=== PATIENT | female | born 1970 | race Caucasian/White ===

== ENCOUNTER 2018-02-12 15:09 | Emergency (ER) | payer BC ==
[2018-02-12] MEDS ORDERED: Morphine 2 MG/ML Syringe IVPUSH ONE ×2 (15:35→17:08)
[2018-02-12] MEDS ORDERED: Sodium Chloride 0.9% 10 ML Syringe FLUSH PRN ×2 (15:35→16:23)
[2018-02-12] MEDS ORDERED: Sodium Chloride 0.9% 1,000 ML IV ONE (15:35)
[2018-02-12] MEDS ORDERED: Ondansetron 4 MG/2 ML SDV IVPUSH ONE (15:35)
--- NOTE | 2018-02-12 15:45 | EDM.PDOC ---
ED HPI GENERAL MEDICAL PROBLEM - General Chief Complaint: Cardiovascular Problem Stated Complaint: RACING HEART BEAT Time Seen by Provider: 02/12/18 15:28 Source of Information: Reports: Patient History Limitations: Reports: No Limitations - History of Present Illness INITIAL COMMENTS - FREE TEXT/NARRATIVE: 47-year-old female presents for evaluation and treatment of a rapid heartbeat. Patient reports this started around midnight last night. She states that she was at work at the time. She was standing and walking, not overly exerting herself. She states that she suddenly felt her heart pounding and felt some discomfort in her chest associated with this. She reports associated symptoms of nausea and lightheadedness. She did vomit twice prior to coming to the ER. She reports she did feel some shortness of breath earlier but this is no improved. Patient also reports associated symptoms of bilateral flank pain which started at the time of the chest palpitations. Reports the flank pain is currently a 5 out of 10 but states that its worse it was an 8 or 9 out of 10. She denies any syncope. Denies any pain or swelling in her legs. Patient reports this did occur on one other occasion several months ago. She did not seek help right away. She was seen by her primary care provider 5 days later and was told she possibly had paroxysmal SVT. She did try vagal maneuvers including bearing-down prior to arrival in the ER but this did not relieve the palpitations. Patient is also complaining of a headache. She has a history of headaches and states this feels similar to her previous headaches. Reports some blurriness in her vision earlier but this is now resolved. Reports the headache started on . She is on Imitrex for migraines. She states that she took 2 on , one last night Wednesday without any relief. No recent travel. 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 Headache Pain Score (Numeric/FACES): 9 - Related Data Allergies Allergy/AdvReac Type Severity Reaction Status Date / Time No Known Allergies Allergy Verified 10/08/15 15:03 Home Meds: Home Meds Aspirin [Halfprin] 81 mg PO DAILY #30 tab.ec 09/28/14 [Rx] SUMAtriptan Succinate [Imitrex] 100 mg PO ASDIRECTED 10/08/15 [History] Topiramate [Topamax] 100 mg PO BEDTIME 10/08/15 [History] Venlafaxine [Effexor XR] 150 mg PO DAILY 10/08/15 [History] Losartan Potassium 25 mg PO DAILY 02/12/18 [History] Metoprolol Succinate 50 mg PO DAILY #20 tab.er.24h 02/12/18 [Rx] Past Medical History HEENT History: Reports: Allergic Rhinitis, Impaired Vision, Other (See Below) Other HEENT History: sinus infection, rhinosinusitis, wears glasses Cardiovascular History: Reports: Hypertension, Other (See Below) Other Cardiovascular History: chest pain, creschendo angina, hypertensive crisis without CHF Gastrointestinal History: Reports: Hemorrhoids Other Gastrointestinal History: nausea, rectal bleeding Genitourinary History: Other OB/BYN History: irregular menses Musculoskeletal History: Reports: Fibromyalgia, Neck Pain, Chronic Other Musculoskeletal History: L Leg broken many years ago Neurological History: Reports: Headaches, Chronic, Migraines Psychiatric History: Reports: Anxiety, Panic Attack - Past Surgical History Musculoskeletal Surgical History: Reports: Shoulder Surgery Social & Family History - Tobacco Use Smoking Status *Q: Never Smoker - Caffeine Use Caffeine Use: Reports: Coffee, Tea - Recreational Drug Use Recreational Drug Use: No ED ROS GENERAL - Review of Systems Review Of Systems: See Below Respiratory: Reports: Shortness of Breath. Denies: Cough Cardiovascular: Reports: Chest Pain, Lightheadedness, Palpitations. Denies: Edema, Syncope GI/Abdominal: Reports: Nausea, Vomiting. Denies: Abdominal Pain : Reports: Flank Pain (bilateral) Musculoskeletal: Denies: Leg Pain Neurological: Reports: Headache. Denies: Syncope ED EXAM, GENERAL - Physical Exam Exam: See Below Exam Limited By: No Limitations General Appearance: Alert, WD/WN, No Apparent Distress, Obese Eye Exam: Bilateral Eye: Normal Inspection Ears: Normal External Exam Nose: Normal Inspection Throat/Mouth: Normal Inspection, Normal Voice, No Airway Compromise Respiratory/Chest: No Respiratory Distress, Lungs Clear, Normal Breath Sounds Cardiovascular: No Murmur, Tachycardia Peripheral Pulses: 2+: Radial (L), Radial (R), Dorsalis Pedis (L), Dorsalis Pedis (R) GI/Abdominal: Normal Bowel Sounds, Soft, Splenomegaly Neurological: Alert, Oriented, Normal Cognition Psychiatric: Normal Affect, Normal Mood Skin Exam: Warm, Dry, Normal Color EKG INTERPRETATION EKG Date: 02/12/18 Time: 15:20 Rhythm: Other (sinus tachycardia) Rate (Beats/Min): 116 [place]: Normal P-Wave: Present QRS: Normal ST-T: Normal QT: Normal EKG Interpretation Comments: Sinus tachycardia at 116 bpm. Abnormal Q waves in II, III and AVF. Reviewed by myself and Dr Mason. Course - Vital Signs Last Recorded V/S: Last Vital Signs Temp 36.3 C 02/12/18 15:14 Pulse 118 H 02/12/18 18:16 Resp 28 H 02/12/18 15:14 BP 134/82 02/12/18 18:16 Pulse Ox 96 02/12/18 15:14 - Orders/Labs/Meds Orders: Active Orders 24 hr Category Date Time Status Cardiac Monitoring [RC] . DIRECTED Care 02/12/18 15:35 Active EKG Documentation Completion [RC] ASDIRECTED Care 02/12/18 15:16 Active Peripheral IV Care [RC] . DIRECTED Care 02/12/18 15:36 Active Abdomen Pelvis w Cont [CT] Stat Exams 02/12/18 16:02 Taken Ang Chest [CT] Stat Exams 02/12/18 16:02 Taken Chest 1V Frontal [CR] Stat Exams 02/12/18 15:35 Taken CULTURE BLOOD [BC] Stat Lab 02/12/18 17:30 Received CULTURE BLOOD [BC] Stat Lab 02/12/18 17:40 Received DRUG SCREEN, URINE [URCHEM] Stat Lab 02/12/18 17:15 Ordered UA W/MICROSCOPIC [URIN] Stat Lab 02/12/18 17:17 Ordered Blood Culture x2 Reflex Set [OM.PC] Stat Oth 02/12/18 17:16 Ordered Peripheral IV Insertion Adult [OM.PC] Routine Oth 02/12/18 15:35 Ordered EKG 12 Lead [EK] Stat Ther 02/12/18 15:16 Ordered Labs: Laboratory Tests 02/12/18 02/12/18 02/12/18 Range/Units 15:20 15:20 15:20 WBC 2.62 L (3.98-10.04) K/mm3 RBC 4.90 (3.98-5.22) M/mm3 Hgb 14.2 (11.2-15.7) gm/L Hct 43.0 (34.1-44.9) % MCV 87.8 (79.4-94.8) fl MCH 29.0 (25.6-32.2) pg MCHC 33.0 (32.2-35.5) g/dl RDW Std Deviation 43.6 (36.4-46.3) fL Plt Count 180 L (182-369) K/mm3 MPV 9.7 (9.4-12.3) fl Neutrophils % (Manual) 75 H (40-60) % Band Neutrophils % 1 (0-10) % Lymphocytes % (Manual) 17 L (20-40) % Atypical Lymphs % 0 % Monocytes % (Manual) 6 (2-10) % Eosinophils % (Manual) 0 L (0.7-5.8) % Basophils % (Manual) 1 (0.1-1.2) Platelet Estimate Adequate Plt Morphology Comment Normal RBC Morph Comment Normal PT (9.5-12.1) SECONDS INR APTT (24-31) SECONDS D-Dimer, Quantitative 2.05 H (0.19-0.50) mg/L Sodium 136 (136-145) mEq/L Potassium 3.8 (3.5-5.1) mEq/L Chloride 99 (98-107) mEq/L Carbon Dioxide 27 (21-32) mEq/L Anion Gap 13.8 (5-15) BUN 10 (7-18) mg/dL Creatinine 0.9 (0.55-1.02) mg/dL Est Cr Clr Drug Dosing 79.89 mL/min Estimated GFR (MDRD) > 60 (>60) mL/min BUN/Creatinine Ratio 11.1 L (14-18) Glucose 133 H (74-106) mg/dL Lactic Acid (0.4-2.0) mmol/L Calcium 9.7 (8.5-10.1) mg/dL Magnesium 1.9 (1.8-2.4) mg/dl Total Bilirubin 0.6 (0.2-1.0) mg/dL AST 30 (15-37) U/L ALT 38 (14-59) U/L Alkaline Phosphatase 62 (46-116) U/L Troponin I < 0.017 (0.00-0.056) ng/mL C-Reactive Protein (<1.0) mg/dL Total Protein 8.6 H (6.4-8.2) g/dl Albumin 4.3 (3.4-5.0) g/dl Globulin 4.3 gm/dL Albumin/Globulin Ratio 1.0 (1-2) TSH 3rd Generation 0.515 (0.358-3.74) uIU/mL Urine Color (Yellow) Urine Appearance (Clear) Urine pH (5.0-8.0) Ur Specific [place] (1.005-1.030) Urine Protein (Negative) Urine Glucose (UA) (Negative) Urine Ketones (Negative) Urine Occult Blood (Negative) Urine Nitrite (Negative) Urine Bilirubin (Negative) Urine Urobilinogen (0.2-1.0) Ur Leukocyte Esterase (Negative) Urine RBC (0-5) /hpf Urine WBC (0-5) /hpf Ur Epithelial Cells (0-5) /hpf Urine Bacteria (FEW) /hpf Urine Mucus (FEW) /hpf Urine Opiates Screen (NEGATIVE) Ur Buprenorphine Scrn (NEGATIVE) Ur Oxycodone Screen (NEGATIVE) Urine Methadone Screen (NEGATIVE) Ur Propoxyphene Screen (NEGATIVE) Ur Barbiturates Screen (NEGATIVE) Ur Tricyclics Screen (NEGATIVE) Ur Phencyclidine Scrn (NEGATIVE) Ur Amphetamine Screen (NEGATIVE) U Methamphetamines Scrn (NEGATIVE) U Benzodiazepines Scrn (NEGATIVE) U Cocaine Metab Screen (NEGATIVE) U Marijuana (THC) Screen (NEGATIVE) Ethyl Alcohol (0.00) gm% Monoscreen (NEGATIVE) 02/12/18 02/12/18 02/12/18 Range/Units 15:20 15:20 15:20 WBC (3.98-10.04) K/mm3 RBC (3.98-5.22) M/mm3 Hgb (11.2-15.7) gm/L Hct (34.1-44.9) % MCV (79.4-94.8) fl MCH (25.6-32.2) pg MCHC (32.2-35.5) g/dl RDW Std Deviation (36.4-46.3) fL Plt Count (182-369) K/mm3 MPV (9.4-12.3) fl Neutrophils % (Manual) (40-60) % Band Neutrophils % (0-10) % Lymphocytes % (Manual) (20-40) % Atypical Lymphs % % Monocytes % (Manual) (2-10) % Eosinophils % (Manual) (0.7-5.8) % Basophils % (Manual) (0.1-1.2) Platelet Estimate Plt Morphology Comment RBC Morph Comment PT 10.3 (9.5-12.1) SECONDS INR 0.94 APTT 29 (24-31) SECONDS D-Dimer, Quantitative (0.19-0.50) mg/L Sodium (136-145) mEq/L Potassium (3.5-5.1) mEq/L Chloride (98-107) mEq/L Carbon Dioxide (21-32) mEq/L Anion Gap (5-15) BUN (7-18) mg/dL Creatinine (0.55-1.02) mg/dL Est Cr Clr Drug Dosing mL/min Estimated GFR (MDRD) (>60) mL/min BUN/Creatinine Ratio (14-18) Glucose (74-106) mg/dL Lactic Acid (0.4-2.0) mmol/L Calcium (8.5-10.1) mg/dL Magnesium (1.8-2.4) mg/dl Total Bilirubin (0.2-1.0) mg/dL AST (15-37) U/L ALT (14-59) U/L Alkaline Phosphatase (46-116) U/L Troponin I (0.00-0.056) ng/mL C-Reactive Protein 6.3 H* (<1.0) mg/dL Total Protein (6.4-8.2) g/dl Albumin (3.4-5.0) g/dl Globulin gm/dL Albumin/Globulin Ratio (1-2) TSH 3rd Generation (0.358-3.74) uIU/mL Urine Color (Yellow) Urine Appearance (Clear) Urine pH (5.0-8.0) Ur Specific [place] (1.005-1.030) Urine Protein (Negative) Urine Glucose (UA) (Negative) Urine Ketones (Negative) Urine Occult Blood (Negative) Urine Nitrite (Negative) Urine Bilirubin (Negative) Urine Urobilinogen (0.2-1.0) Ur Leukocyte Esterase (Negative) Urine RBC (0-5) /hpf Urine WBC (0-5) /hpf Ur Epithelial Cells (0-5) /hpf Urine Bacteria (FEW) /hpf Urine Mucus (FEW) /hpf Urine Opiates Screen (NEGATIVE) Ur Buprenorphine Scrn (NEGATIVE) Ur Oxycodone Screen (NEGATIVE) Urine Methadone Screen (NEGATIVE) Ur Propoxyphene Screen (NEGATIVE) Ur Barbiturates Screen (NEGATIVE) Ur Tricyclics Screen (NEGATIVE) Ur Phencyclidine Scrn (NEGATIVE) Ur Amphetamine Screen (NEGATIVE) U Methamphetamines Scrn (NEGATIVE) U Benzodiazepines Scrn (NEGATIVE) U Cocaine Metab Screen (NEGATIVE) U Marijuana (THC) Screen (NEGATIVE) Ethyl Alcohol 0.00 (0.00) gm% Monoscreen Negative (NEGATIVE) 02/12/18 02/12/18 02/12/18 Range/Units 17:15 17:17 17:35 WBC (3.98-10.04) K/mm3 RBC (3.98-5.22) M/mm3 Hgb (11.2-15.7) gm/L Hct (34.1-44.9) % MCV (79.4-94.8) fl MCH (25.6-32.2) pg MCHC (32.2-35.5) g/dl RDW Std Deviation (36.4-46.3) fL Plt Count (182-369) K/mm3 MPV (9.4-12.3) fl Neutrophils % (Manual) (40-60) % Band Neutrophils % (0-10) % Lymphocytes % (Manual) (20-40) % Atypical Lymphs % % Monocytes % (Manual) (2-10) % Eosinophils % (Manual) (0.7-5.8) % Basophils % (Manual) (0.1-1.2) Platelet Estimate Plt Morphology Comment RBC Morph Comment PT (9.5-12.1) SECONDS INR APTT (24-31) SECONDS D-Dimer, Quantitative (0.19-0.50) mg/L Sodium (136-145) mEq/L Potassium (3.5-5.1) mEq/L Chloride (98-107) mEq/L Carbon Dioxide (21-32) mEq/L Anion Gap (5-15) BUN (7-18) mg/dL Creatinine (0.55-1.02) mg/dL Est Cr Clr Drug Dosing mL/min Estimated GFR (MDRD) (>60) mL/min BUN/Creatinine Ratio (14-18) Glucose (74-106) mg/dL Lactic Acid 1.5 (0.4-2.0) mmol/L Calcium (8.5-10.1) mg/dL Magnesium (1.8-2.4) mg/dl Total Bilirubin (0.2-1.0) mg/dL AST (15-37) U/L ALT (14-59) U/L Alkaline Phosphatase (46-116) U/L Troponin I (0.00-0.056) ng/mL C-Reactive Protein (<1.0) mg/dL Total Protein (6.4-8.2) g/dl Albumin (3.4-5.0) g/dl Globulin gm/dL Albumin/Globulin Ratio (1-2) TSH 3rd Generation (0.358-3.74) uIU/mL Urine Color Yellow (Yellow) Urine Appearance Clear (Clear) Urine pH 7.0 (5.0-8.0) Ur Specific [place] 1.015 (1.005-1.030) Urine Protein Negative (Negative) Urine Glucose (UA) 2+ H (Negative) Urine Ketones 1+ H (Negative) Urine Occult Blood Trace-intact H (Negative) Urine Nitrite Negative (Negative) Urine Bilirubin Negative (Negative) Urine Urobilinogen 0.2 (0.2-1.0) Ur Leukocyte Esterase Negative (Negative) Urine RBC 0-5 (0-5) /hpf Urine WBC 0-5 (0-5) /hpf Ur Epithelial Cells 5-10 H (0-5) /hpf Urine Bacteria Not seen (FEW) /hpf Urine Mucus Not seen (FEW) /hpf Urine Opiates Screen Presumptive positive H (NEGATIVE) Ur Buprenorphine Scrn Negative (NEGATIVE) Ur Oxycodone Screen Negative (NEGATIVE) Urine Methadone Screen Negative (NEGATIVE) Ur Propoxyphene Screen Negative (NEGATIVE) Ur Barbiturates Screen Negative (NEGATIVE) Ur Tricyclics Screen Negative (NEGATIVE) Ur Phencyclidine Scrn Negative (NEGATIVE) Ur Amphetamine Screen Negative (NEGATIVE) U Methamphetamines Scrn Negative (NEGATIVE) U Benzodiazepines Scrn Negative (NEGATIVE) U Cocaine Metab Screen Negative (NEGATIVE) U Marijuana (THC) Screen Negative (NEGATIVE) Ethyl Alcohol (0.00) gm% Monoscreen (NEGATIVE) Meds: Medications Discontinued Medications Generic Name Dose Route Start Last Admin Trade Name Freq PRN Reason Stop Dose Admin Diphenhydramine HCl 25 mg 02/12/18 18:36 02/12/18 18:45 Benadryl IVPUSH 02/12/18 18:37 25 mg ONETIME ONE Administration Sodium Chloride 1,000 mls @ 999 mls/hr 02/12/18 15:35 02/12/18 15:44 Normal Saline IV 02/12/18 16:35 999 mls/hr ONETIME ONE Administration Sodium Chloride 250 mls @ 80 mls/hr 02/12/18 16:30 02/12/18 16:46 Normal Saline IV 80 mls/hr ASDIRECTED PEDRO Administration Iopamidol 100 ml 02/12/18 16:23 02/12/18 16:45 Isovue-370 (76%) IVPUSH 02/12/18 16:24 100 ml ONETIME ONE Administration Iopamidol 25 ml 02/12/18 16:23 02/12/18 16:45 Isovue-370 (76%) IVPUSH 02/12/18 16:24 25 ml ONETIME ONE Administration Ketorolac Tromethamine 30 mg 02/12/18 18:35 02/12/18 18:42 Toradol IVPUSH 02/12/18 18:36 30 mg ONETIME ONE Administration Metoprolol Succinate 50 mg 02/12/18 21:00 Toprol Xl PO BEDTIME PEDRO Metoprolol Succinate 50 mg 02/12/18 18:07 02/12/18 18:16 Toprol Xl PO 02/12/18 18:08 50 mg NOW ONE Administration Morphine Sulfate 2 mg 02/12/18 15:35 02/12/18 15:49 Morphine IVPUSH 02/12/18 15:36 2 mg ONETIME ONE Administration Morphine Sulfate 2 mg 02/12/18 17:08 02/12/18 17:12 Morphine IVPUSH 02/12/18 17:09 2 mg ONETIME ONE Administration Ondansetron HCl 4 mg 02/12/18 15:35 02/12/18 15:45 Zofran IVPUSH 02/12/18 15:36 4 mg ONETIME ONE Administration Sodium Chloride 10 ml 02/12/18 15:35 02/12/18 15:52 Saline Flush FLUSH 10 ml ASDIRECTED PRN Administration Keep Vein Open Sodium Chloride 10 ml 02/12/18 16:23 02/12/18 16:45 Saline Flush FLUSH 10 ml ONETIME PRN Administration IV FLUSH - Radiology Interpretation Free Text/Narrative:: chest xray shows no acute intrathroacic process. CT pulmonary angiogram impression per [facility]: No central pulmonary embolus. Study is slightly technically limited. CT of the abdomen and pelvis with IV contrast impression per [facility]: mild splenomegaly - Re-Assessments/Exams Free Text/Narrative Re-Assessment/Exam: 02/12/18 16:05 D-dimer returned elevated at 2. I informed patient of this. We will obtain a CT pulmonary angiogram to evaluate for pulmonary embolism. I will also have him get a CT with IV contrast of her abdomen and pelvis due to her flank pain and palpable spleen on exam. 02/12/18 17:10 Patient continues to complain of bilateral flank pain. Additional 2 mg IV morphine ordered. 02/02/18 18:10 Added on blood cultures and a lactic acid. I discussed the case with Dr. Mason. She is not terribly dehydrated. She has received a liter of fluids. Recommended giving her 1 50mg tab of metoprolol at this time as she continues to be tachycardic. I informed the patient of the labs, EKG and CT results. At this time is not clear what is causing her tachycardia. Is also unclear what is causing the leukopenia. I informed her that we will rule out any emergencies tonight but it is very possible that she may have to follow up in clinic for further evaluation testing. She is agreeable to this. At this point I do not see any reason for admission to the hospital. One consideration, while very rare, would be a pheochromocytoma. Review of her records show that she has been admitted to the hospital before with hypertension and chest pain. She has not been hypertensive today and her blood pressures have been 130s. 02/12/18 19:31 Discussed the case with Dr. Catrachita Obrien. She has reviewed imaging, EKG and labs. Does not feel we are missing anything emergent. Recommended we give her another bag of fluids it patient is agreeable. I checked on the patient. She reports that her migraine has significantly improved with the Toradol and Benadryl. Now 4 out of 5. She still continues to feel palpitations but however they do not feel as severe. I educated her that she will likely require more testing to discover the etiology of her tachycardia. I also informed her of her mild splenomegaly seen on CT. I will have her follow-up with her primary care provider this week. I offered her another bag of fluid but this time she would like to go home. Discharge instructions as documented. Departure - Departure Time of Disposition: 19:35 Disposition: Home, Self-Care 01 Condition: Fair Clinical Impression: Tachycardia, Splenomegaly, Leukopenia, Migraine Prescriptions: Metoprolol Succinate 50 mg PO DAILY #20 tab.er.24h Referrals: Arslan Damico MD [Primary Care Provider] - Forms: ED Department Discharge Additional Instructions: Make sure you're drinking plenty of fluids. Metoprolol 1 tab daily. Follow-up with your primary care provider Wednesday or Wednesday of this week to recheck your symptoms and for further evaluation. Please return to the ER if your symptoms change or worsen. - My Orders Last 24 Hours: My Active Orders 02/12/18 15:35 Cardiac Monitoring [RC] . DIRECTED Chest 1V Frontal [CR] Stat Peripheral IV Insertion Adult [OM.PC] Routine 02/12/18 15:36 Peripheral IV Care [RC] . DIRECTED 02/12/18 16:02 Abdomen Pelvis w Cont [CT] Stat Ang Chest [CT] Stat 02/12/18 17:15 DRUG SCREEN, URINE [URCHEM] Stat 02/12/18 17:16 Blood Culture x2 Reflex Set [OM.PC] Stat 02/12/18 17:17 UA W/MICROSCOPIC [URIN] Stat 02/12/18 17:30 CULTURE BLOOD [BC] Stat 02/12/18 17:40 CULTURE BLOOD [BC] Stat - Assessment/Plan Last 24 Hours: My Active Orders 02/12/18 15:35 Cardiac Monitoring [RC] . DIRECTED Chest 1V Frontal [CR] Stat Peripheral IV Insertion Adult [OM.PC] Routine 02/12/18 15:36 Peripheral IV Care [RC] . DIRECTED 02/12/18 16:02 Abdomen Pelvis w Cont [CT] Stat Ang Chest [CT] Stat 02/12/18 17:15 DRUG SCREEN, URINE [URCHEM] Stat 02/12/18 17:16 Blood Culture x2 Reflex Set [OM.PC] Stat 02/12/18 17:17 UA W/MICROSCOPIC [URIN] Stat 02/12/18 17:30 CULTURE BLOOD [BC] Stat 02/12/18 17:40 CULTURE BLOOD [BC] Stat
[2018-02-12] MEDS ORDERED: Iopamidol 755 MG/ML 50 ML Bottle IVPUSH ONE (16:23)
[2018-02-12] MEDS ORDERED: Iopamidol 755 Mg/ML 100 ML Bottle IVPUSH ONE (16:23)
[2018-02-12] MEDS ORDERED: Sodium Chloride 0.9% 250 ML IV SCH (16:30)
[2018-02-12] MEDS ORDERED: Metoprolol Succinate 50 MG Tab.ER PO ONE (18:07)
[2018-02-12 18:17] VITALS: BP 134/82
[2018-02-12] MEDS ORDERED: Ketorolac 30 MG/ML SDV IVPUSH ONE (18:35)
[2018-02-12] MEDS ORDERED: diphenhydrAMINE 50 MG/ML SDV IVPUSH ONE (18:36)
[2018-02-12] MEDS ORDERED: Metoprolol Succinate 50 MG Tab.ER PO SCH (21:00)
--- NOTE | 2018-02-13 14:14 | CT ---
CT abdomen and pelvis Technique: Multiple axial sections were obtained from above the dome of the diaphragm inferiorly through the pubic symphysis. Intravenous contrast was utilized. Delayed images were also obtained through the abdomen and pelvis. No oral contrast has been given. Findings: Visualized lung bases show nothing acute. Liver shows mild fatty infiltration without focal abnormality. Low-density compatible with incidental fat seen next to the ligamentum teres fissure. Spleen measures 13.5 cm in length. This length is at the upper limits of normal. No focal abnormality is identified within the spleen. Adrenal glands show no nodule. Pancreas is within normal limits. Kidneys show symmetric contrast enhancement. Low density finding is noted within the mid left kidney which has Hounsfield unit measurements of cyst measuring 1.2 cm. Gallbladder contains no calcified gallstones. Aorta shows no aneurysmal dilatation. No retroperitoneal adenopathy or mesenteric abnormalities are seen. No findings of appendicitis are seen. No pelvic mass or adenopathy is seen. No free fluid or inflammatory changes seen. Delayed images show contrast within nondilated ureters as well as contrast within the bladder. Bone window settings were reviewed which show mild scattered degenerative change within the spine. Small fat-containing umbilical hernia is incidentally noted. Impression: 1. Spleen measures at the upper limits of normal. 2. Mild fatty infiltration within the liver. 3. Nothing acute is identified on CT study of the abdomen and pelvis with other incidental findings. Diagnostic code #2 I agree with preliminary report issued by [facility] (02/12/18, 6:15 PM Central Time)
--- NOTE | 2018-02-13 14:14 | CT ---
CT chest Technique: Multiple axial sections through the chest were obtained. Intravenous contrast was utilized. Study has been performed as a pulmonary angiogram protocol. Findings: Pulmonary arteries are not optimally opacified. No filling defects seen within the main or segmental branches to indicate pulmonary embolism. Smaller subsegmental pulmonary emboli could easily be missed. Mediastinum and hilar regions show no adenopathy or mass. No pericardial thickening is seen. Small portion of the visualized upper abdominal structures are within normal limits. Lungs show no acute parenchymal change. Bone window settings were reviewed which show mild degenerative spurring within the spine. Nothing acute is seen on bone window settings. Impression: 1. Less than optimal opacification of the pulmonary arteries. Small subsegmental pulmonary emboli could be missed. Main and segmental branches show no findings of pulmonary embolism. 2. Other incidental findings. Diagnostic code #3 Agree with preliminary report issued by [facility] ([facility] preliminary report dictated on 02/12/18, 6:07 PM Central Time)
--- NOTE | 2018-02-13 14:14 | CR ---
Chest: Portable view of the chest was obtained. Comparison: No prior chest x-ray. Heart size and mediastinum are normal. Lungs are clear. Bony structures are grossly intact. Impression: 1. Nothing acute is seen on portable chest x-ray. Diagnostic code #1
== END 2018-02-12 19:50 | disposition home or self-care (01) ==
LOC: JD.ED 15:09
DX: G43.909 Migraine, unspecified, not intractable, without status migrainosus (principal); R00.0 Tachycardia, unspecified; R16.1 Splenomegaly, not elsewhere classified; D72.819 Decreased white blood cell count, unspecified; I10 Essential (primary) hypertension; Z79.82 Long term (current) use of aspirin; Z79.899 Other long term (current) drug therapy
CPT/HCPCS: 36415; 71045; 71275; 74177; 80053; 80306; 81001; 83605; 83735; 84443; 84484; 85007; 85027; 85379; 85610; 85730; 86140; 86308; 87040; 93005; 96361; 96374; 96375; 96376; 99285; A9270; G0480; J1200; J1885; J2270; J2405; J7040; J7050; Q9967; 93010; 99284

== ENCOUNTER 2019-05-25 12:04 | Emergency (ER) | payer BC ==
[2019-05-25 12:21] VITALS: BP 155/92
--- NOTE | 2019-05-25 12:36 | EDM.PDOC ---
ED HPI GENERAL MEDICAL PROBLEM - General Chief Complaint: Chest Pain Stated Complaint: CHEST PAIN Time Seen by Provider: 05/25/19 12:35 Source of Information: Reports: Patient History Limitations: Reports: No Limitations - History of Present Illness INITIAL COMMENTS - FREE TEXT/NARRATIVE: Patient complains of mid epigastric/substernal chest pain that radiates in the left side of his lateral chest into the left CVA region. She was walking at work when this occurred. Pain is described as sharp sensation constant and waxes and wanes in intensity. She does not recall any specific activity/trauma that may have precipitated this. She works at a local [employer]. As a recent she's been complaining of some increased acid reflux and notes with laying flat the pain gets worse. Pain is worsen with taking a deep breath. She is mildly nauseated this morning. She's had a similar episode like this in February with findings of a hiatal hernia that resolved. She currently denies any history of coronary disease, diabetes, or for degree relatives with heart disease. She does have a history of hypercholesteremia and hypertension. She is on losartan, metoprolol, and also Imitrex for migraines. She takes tramadol for chronic back pain. She has no history of blood clots to her lower extremities or lungs. Currently denies any pain or swelling to the lower extremities. She is not on control. She does not smoke. 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 Left Chest Pain Score (Numeric/FACES): 8 - Related Data Allergies Allergy/AdvReac Type Severity Reaction Status Date / Time No Known Allergies Allergy Verified 05/25/19 12:21 Home Meds: Home Meds Aspirin [Halfprin] 81 mg PO DAILY #30 tab.ec 09/28/14 [Rx] SUMAtriptan Succinate [Imitrex] 100 mg PO ASDIRECTED 10/08/15 [History] Losartan Potassium 25 mg PO DAILY 02/12/18 [History] Metoprolol Succinate 50 mg PO DAILY #20 tab.er.24h 02/12/18 [Rx] Acetaminophen/HYDROcodone [Zachary 325-5 MG] 1 tab PO Q6H PRN #15 tablet 05/25/19 [Rx] Past Medical History HEENT History: Reports: Allergic Rhinitis, Impaired Vision, Other (See Below) Other HEENT History: sinus infection, rhinosinusitis, wears glasses Cardiovascular History: Reports: Hypertension, Other (See Below) Other Cardiovascular History: chest pain, creschendo angina, hypertensive crisis without CHF Gastrointestinal History: Reports: Hemorrhoids, Hiatal Hernia Other Gastrointestinal History: nausea, rectal bleeding Genitourinary History: Other 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 GAS History: irregular menses Musculoskeletal History: Reports: Fibromyalgia, Neck Pain, Chronic Other Musculoskeletal History: L Leg broken many years ago Neurological History: Reports: Headaches, Chronic, Migraines Psychiatric History: Reports: Anxiety, Panic Attack - Past Surgical History Musculoskeletal Surgical History: Reports: Shoulder Surgery Social & Family History - Tobacco Use Smoking Status *Q: Never Smoker - Caffeine Use Caffeine Use: Reports: Coffee, Tea - Recreational Drug Use Recreational Drug Use: No ED ROS GENERAL - Review of Systems Review Of Systems: ROS reveals no pertinent complaints other than HPI. ED EXAM, GENERAL - Physical Exam Exam: See Below Exam Limited By: No Limitations General Appearance: Alert, WD/WN, No Apparent Distress Ears: Hearing Grossly Normal Nose: Normal Inspection Throat/Mouth: Normal Voice, No Airway Compromise Head: Atraumatic, Normocephalic Neck: Normal Inspection, Supple Respiratory/Chest: No Respiratory Distress, Lungs Clear, Normal Breath Sounds, No Accessory Muscle Use, Other (Pain to the lower sternal border and along the left lateral chest/mid back. No bony abnormalities, redness, swelling, rash, or ecchymosis.) Cardiovascular: Normal Peripheral Pulses, No Murmur, Tachycardia Peripheral Pulses: 2+: Radial (L), Radial (R), Posterior Tibial (L), Posterior Tibial (R) GI/Abdominal: Normal Bowel Sounds, Soft, Non-Tender, No Organomegaly, No Distention Back Exam: Normal Inspection, Full Range of Motion. No: CVA Tenderness (L), CVA Tenderness (R), Paraspinal Tenderness, Vertebral Tenderness Extremities: Normal Inspection, Normal Range of Motion, Non-Tender, No Pedal Edema Neurological: Alert, Oriented, CN II-XII Intact, Normal Cognition, No Motor/ Sensory Deficits Psychiatric: Normal Affect, Normal Mood Skin Exam: Warm, Dry, Intact, Normal Color, No Rash Course - Vital Signs Last Recorded V/S: Last Vital Signs Temp 98.7 F 05/25/19 12:18 Pulse 103 H 05/25/19 12:18 Resp 16 05/25/19 12:18 BP 155/92 H 05/25/19 12:18 Pulse Ox 99 05/25/19 12:18 - Orders/Labs/Meds Orders: Active Orders 24 hr Category Date Time Status EKG Documentation Completion [RC] ASDIRECTED Care 05/25/19 12:24 Active CULTURE URINE [RM] Stat Lab 05/25/19 13:30 Received EKG 12 Lead [EK] Stat Ther 05/25/19 12:23 Ordered Labs: Laboratory Tests 05/25/19 05/25/19 05/25/19 Range/Units 12:35 12:35 12:35 WBC 7.24 (3.98-10.04) K/mm3 RBC 4.42 (3.98-5.22) M/mm3 Hgb 13.0 (11.2-15.7) gm/L Hct 38.8 (34.1-44.9) % MCV 87.8 (79.4-94.8) fl MCH 29.4 (25.6-32.2) pg MCHC 33.5 (32.2-35.5) g/dl RDW Std Deviation 41.4 (36.4-46.3) fL Plt Count 227 (182-369) K/mm3 MPV 10.0 (9.4-12.3) fl Neut % (Auto) 77.4 H (34.0-71.1) % Lymph % (Auto) 16.0 L (19.3-51.7) % [place] % (Auto) 5.9 (4.7-12.5) % Eos % (Auto) 0.3 L (0.7-5.8) Baso % (Auto) 0.3 (0.1-1.2) % Neut # (Auto) 5.60 (1.56-6.13) K/mm3 Lymph # (Auto) 1.16 L (1.18-3.74) K/mm3 [place] # (Auto) 0.43 H (0.24-0.36) K/mm3 Eos # (Auto) 0.02 L (0.04-0.36) K/mm3 Baso # (Auto) 0.02 (0.01-0.08) K/mm3 D-Dimer, Quantitative 0.61 H (0.19-0.50) mg/L Sodium 138 (136-145) mEq/L Potassium 4.1 (3.5-5.1) mEq/L Chloride 102 (98-107) mEq/L Carbon Dioxide 25 (21-32) mEq/L Anion Gap 15.1 H (5-15) BUN 14 (7-18) mg/dL Creatinine 0.8 (0.55-1.02) mg/dL Est Cr Clr Drug Dosing 91.99 mL/min Estimated GFR (MDRD) > 60 (>60) mL/min BUN/Creatinine Ratio 17.5 (14-18) Glucose 147 H (74-106) mg/dL Calcium 9.2 (8.5-10.1) mg/dL Total Bilirubin 0.4 (0.2-1.0) mg/dL AST 21 (15-37) U/L ALT 31 (14-59) U/L Alkaline Phosphatase 53 (46-116) U/L Troponin I < 0.017 (0.00-0.056) ng/mL C-Reactive Protein (<1.0) mg/dL Total Protein 8.1 (6.4-8.2) g/dl Albumin 4.0 (3.4-5.0) g/dl Globulin 4.1 gm/dL Albumin/Globulin Ratio 1.0 (1-2) HCG, Qual (NEGATIVE) Urine Color (Yellow) Urine Appearance (Clear) Urine pH (5.0-8.0) Ur Specific [place] (1.005-1.030) Urine Protein (Negative) Urine Glucose (UA) (Negative) Urine Ketones (Negative) Urine Occult Blood (Negative) Urine Nitrite (Negative) Urine Bilirubin (Negative) Urine Urobilinogen (0.2-1.0) Ur Leukocyte Esterase (Negative) Urine RBC (0-5) /hpf Urine WBC (0-5) /hpf Ur Squamous Epith Cells (0-5) /hpf Urine Bacteria (FEW) /hpf Urine Mucus (FEW) /hpf 05/25/19 05/25/19 05/25/19 Range/Units 12:35 12:35 13:25 WBC (3.98-10.04) K/mm3 RBC (3.98-5.22) M/mm3 Hgb (11.2-15.7) gm/L Hct (34.1-44.9) % MCV (79.4-94.8) fl MCH (25.6-32.2) pg MCHC (32.2-35.5) g/dl RDW Std Deviation (36.4-46.3) fL Plt Count (182-369) K/mm3 MPV (9.4-12.3) fl Neut % (Auto) (34.0-71.1) % Lymph % (Auto) (19.3-51.7) % [place] % (Auto) (4.7-12.5) % Eos % (Auto) (0.7-5.8) Baso % (Auto) (0.1-1.2) % Neut # (Auto) (1.56-6.13) K/mm3 Lymph # (Auto) (1.18-3.74) K/mm3 [place] # (Auto) (0.24-0.36) K/mm3 Eos # (Auto) (0.04-0.36) K/mm3 Baso # (Auto) (0.01-0.08) K/mm3 D-Dimer, Quantitative (0.19-0.50) mg/L Sodium (136-145) mEq/L Potassium (3.5-5.1) mEq/L Chloride (98-107) mEq/L Carbon Dioxide (21-32) mEq/L Anion Gap (5-15) BUN (7-18) mg/dL Creatinine (0.55-1.02) mg/dL Est Cr Clr Drug Dosing mL/min Estimated GFR (MDRD) (>60) mL/min BUN/Creatinine Ratio (14-18) Glucose (74-106) mg/dL Calcium (8.5-10.1) mg/dL Total Bilirubin (0.2-1.0) mg/dL AST (15-37) U/L ALT (14-59) U/L Alkaline Phosphatase (46-116) U/L Troponin I (0.00-0.056) ng/mL C-Reactive Protein 3.0 H* (<1.0) mg/dL Total Protein (6.4-8.2) g/dl Albumin (3.4-5.0) g/dl Globulin gm/dL Albumin/Globulin Ratio (1-2) HCG, Qual Negative (NEGATIVE) Urine Color Yellow (Yellow) Urine Appearance Clear (Clear) Urine pH 6.5 (5.0-8.0) Ur Specific [place] 1.025 (1.005-1.030) Urine Protein Negative (Negative) Urine Glucose (UA) Negative (Negative) Urine Ketones Negative (Negative) Urine Occult Blood Trace-lysed H (Negative) Urine Nitrite Negative (Negative) Urine Bilirubin Negative (Negative) Urine Urobilinogen 0.2 (0.2-1.0) Ur Leukocyte Esterase Trace H (Negative) Urine RBC 0-5 (0-5) /hpf Urine WBC 5-10 H (0-5) /hpf Ur Squamous Epith Cells 10-20 H (0-5) /hpf Urine Bacteria Rare (FEW) /hpf Urine Mucus Rare (FEW) /hpf Meds: Medications Discontinued Medications Generic Name Dose Route Start Last Admin Trade Name Freq PRN Reason Stop Dose Admin Al Hydroxide/Mg Hydroxide 30 0 ml 05/25/19 13:09 05/25/19 13:24 ml/ Lidocaine HCl 15 ml PO 05/25/19 13:10 45 ml ONETIME ONE Administration Hydromorphone HCl 0.5 mg 05/25/19 13:10 05/25/19 13:21 Dilaudid IVPUSH 05/25/19 13:11 0.5 mg ONETIME ONE Administration Sodium Chloride 1,000 mls @ 250 mls/hr 05/25/19 13:15 05/25/19 13:30 Normal Saline IV 05/25/19 17:14 250 mls/hr ONETIME ONE Administration Iopamidol 100 ml 05/25/19 13:52 05/25/19 14:08 Isovue-370 (76%) IV 05/25/19 13:53 100 ml ONETIME ONE Administration Ondansetron HCl 4 mg 05/25/19 13:10 05/25/19 13:20 Zofran IVPUSH 05/25/19 13:11 4 mg ONETIME ONE Administration Pantoprazole Sodium 40 mg 05/25/19 13:09 05/25/19 13:22 Protonix Iv IVPUSH 05/25/19 13:10 40 mg ONETIME ONE Administration - Re-Assessments/Exams Free Text/Narrative Re-Assessment/Exam: Standing Orders: On triage IV has been established. Initial labs and studies ordered include: CBC, CMP, d-dimer, troponin, chest x-ray, EKG. Initial vital signs were stable. Patient complains of mid epigastric/substernal chest pain that radiates in the left side of his lateral chest into the left CVA region. She was walking at work when this occurred. Pain is described as sharp sensation constant and waxes and wanes in intensity. She does not recall any specific activity appeared precipitated this. She works at a local [employer]. As a recent she' s been complaining of some increased acid reflux and notes with laying flat the pain gets worse. Pain is worsen with taking a deep breath. She is mildly nauseated this morning. She's had a similar episode like this in February with findings of a hiatal hernia that resolved. She currently denies any history of coronary disease, diabetes or for screen relatives with heart disease. She does have a history of hypercholesteremia and hypertension. She is on losartan, metoprolol, and also Imitrex for migraines. She takes tramadol for chronic back pain. She has no history of blood clots to her lower extremities or lungs. Currently denies any pain or swelling to the lower extremities. She is not on control. She does not smoke. UA has been ordered as well. CXR: reviewed with no acute findings noted. Final interpretation is pending. EKG: SR HR 95. ME 132 and QTc 474. No acute ST changes. DDIMER 0.61. Ordered NS 250mls/hr (1 Liter). Serum HCG is pending. UA has been ordered as well. CT chest impression: Small left-sided pleural effusion which is nonspecific. No additional abnormalities seen on CT study of chest. No findings of PE or seen. White blood cell count 7.24, hemoglobin 13.0, neutrophil percentage is 77.4, lymphocyte percentage is 16.0. Number is 1.16. Monocytes 0.43. EKG 15.1. Sodium potassium normal. CO2 normal. Creatinine 0.8. Troponin normal. CRP slightly elevated at 3.0. HCG negative. Discussed lab results and also CT study with the patient. She continues to have some mild left-sided chest discomfort sharp spasming in nature. Reproducible with palpation. UA did reveal urine WBC but also squamous epithelial cells. Suspect this is contaminated. She has no voiding symptoms. I have elected to order a urine culture. She has gotten some relief with the pain medications. I will discharge patient home with instructions as documented. Return precautions were discussed with the patient. She had no further questions or concerns and agreed with plan. Departure - Departure Time of Disposition: 15:59 Disposition: Home, Self-Care 01 Reason for Transfer *Q: Other Condition: Good Clinical Impression: Pleural effusion, Left-sided chest wall pain, Muscle spasm Hematuria Qualifiers: Hematuria type: unspecified type Qualified Code(s): R31.9 - Hematuria, unspecified Prescriptions: Acetaminophen/HYDROcodone [Zachary 325-5 MG] 1 tab PO Q6H PRN #15 tablet PRN Reason: Pain (Severe 7-10) Instructions: Chest Wall Pain, [id number] Referrals: Maryse Ashley [employer] [Primary Care Provider] - Forms: ED Department Discharge Additional Instructions: Please follow up with your PCP for reevaluation this coming week. Again CT of the chest did reveal a small pleural effusion to the left side with unclear etiology. I will have you take ibuprofen and Tylenol in alternating fashion for pain. Utilize warm compresses and ice to the affected area with gentle massage to see if this helps with any discomfort. For severe pain take Zachary one tab every [address] this evening and/or while taking the Zachary. Please return back to the ED if you develop any new or worsening symptoms. Please follow up with PCP for repeat UA to ensure hematuria results. - My Orders Last 24 Hours: My Active Orders 05/25/19 12:23 EKG 12 Lead [EK] Stat 05/25/19 12:24 EKG Documentation Completion [RC] ASDIRECTED 05/25/19 13:30 CULTURE URINE [RM] Stat - Assessment/Plan Last 24 Hours: My Active Orders 05/25/19 12:23 EKG 12 Lead [EK] Stat 05/25/19 12:24 EKG Documentation Completion [RC] ASDIRECTED 05/25/19 13:30 CULTURE URINE [RM] Stat
[2019-05-25] MEDS ORDERED: Alum Hydrox/Mag Hydrox/Simeth 30 ML, Lidocaine 2% 15 ML PO ONE ×2 (13:09)
[2019-05-25] MEDS ORDERED: Pantoprazole 40 MG Vial IVPUSH ONE (13:09)
[2019-05-25] MEDS ORDERED: HYDROmorphone 0.5 MG/0.5 ML Syringe IVPUSH ONE (13:10)
[2019-05-25] MEDS ORDERED: Ondansetron 4 MG/2 ML SDV IVPUSH ONE (13:10)
[2019-05-25] MEDS ORDERED: Sodium Chloride 0.9% 1,000 ML IV ONE (13:15)
--- NOTE | 2019-05-25 13:50 | CR ---
Chest: Portable view of the chest was obtained. Comparison: Prior chest x-ray of 02/12/18. Findings: Heart size and mediastinum are within normal limits for portable technique. Minimal increased density within the lateral left costophrenic angle is seen compatible with slight atelectasis. Lungs otherwise are clear. Bony structures are grossly intact. Impression: 1. Minimal left basilar atelectasis. 2. Nothing acute is appreciated on portable chest x-ray. Diagnostic code #2
[2019-05-25] MEDS ORDERED: Iopamidol 755 Mg/ML 200 ML Bottle IV ONE (13:52)
[2019-05-25] MEDS ORDERED: Sodium Chloride 0.9% 250 ML IV SCH (14:00)
--- NOTE | 2019-05-25 14:46 | CT ---
CT chest Technique: Multiple axial sections through the chest were obtained. Intravenous contrast was utilized. Comparison: Prior chest CT study of 02/12/18. Findings: Pulmonary arteries are moderately well-opacified. No filling defects are seen to indicate pulmonary embolism. Mediastinum and hilar regions show no adenopathy or mass. No pericardial thickening is seen. Visualized portions of the upper abdominal structures shows fatty infiltration within the liver. Small left-sided pleural effusion is noted. Lungs show no acute parenchymal change. Bone window settings were reviewed which show no acute osseous abnormality. Impression: 1. Small left-sided pleural effusion which is nonspecific. 2. No additional abnormality is seen on CT study chest. No findings of pulmonary embolism are seen. Diagnostic code #3
== END 2019-05-25 16:15 | disposition home or self-care (01) ==
LOC: JD.ED 12:04
DX: J90 Pleural effusion, not elsewhere classified (principal); M62.838 Other muscle spasm; R31.9 Hematuria, unspecified; G43.909 Migraine, unspecified, not intractable, without status migrainosus; I10 Essential (primary) hypertension; Z79.82 Long term (current) use of aspirin; Z79.899 Other long term (current) drug therapy
CPT/HCPCS: 36415; 71045; 71275; 80053; 81001; 84484; 84703; 85025; 85379; 86140; 87086; 87088; 93005; 96361; 96374; 96375; 99285; A9270; C9113; J1170; J2405; J7040; Q9967

== ENCOUNTER 2022-03-26 07:42 | Emergency (ER) | payer BC, OTHER, SELFPAY ==
[2022-03-26 08:22] VITALS: PULSE 104
[2022-03-26] MEDS ORDERED: Sodium Chloride 0.9% 10 ML Syringe FLUSH PRN (08:31)
[2022-03-26] MEDS ORDERED: amLODIPine 10 MG Tab PO ONE (10:46)
[2022-03-26] MEDS ORDERED: hydrALAZINE 20 MG/ML SDV IVPUSH ONE (10:46)
[2022-03-26 11:25] LABS: HEMOGLOBIN A1C 8.3 %
[2022-03-26 11:34] VITALS: BP 155/84
[2022-03-26] MEDS ORDERED: Metoclopramide 10 MG/2 ML SDV IVPUSH ONE (11:42)
[2022-03-26] MEDS ORDERED: HYDROmorphone 0.5 MG/0.5 ML Syringe IVPUSH ONE ×3 (11:43→16:50)
[2022-03-26] MEDS ORDERED: Ondansetron 4 MG/2 ML SDV IVPUSH ONE (14:23)
[2022-03-26] MEDS ORDERED: Dicyclomine 10 MG Cap PO ONE (14:23)
[2022-03-26] MEDS ORDERED: Ketorolac 30 MG/ML SDV IVPUSH SCH (15:30)
[2022-03-26] MEDS ORDERED: LORazepam 2 MG/ML SDV IV ONE (15:38)
[2022-03-26] MEDS ORDERED: Lactated Ringers 1,000 ML IV SCH (15:45)
[2022-03-26] MEDS ORDERED: Promethazine 25 MG in Sodium Chloride 0.9% 50 ML IV ONE (16:49)
[2022-03-26] MEDS ORDERED: diphenhydrAMINE 50 MG/ML SDV IVPUSH ONE (16:50)
== END 2022-03-26 21:12 | disposition home or self-care (01) ==
LOC: JD.ED 07:42
DX: K29.70 Gastritis, unspecified, without bleeding (principal); E11.65 Type 2 diabetes mellitus with hyperglycemia; R11.2 Nausea with vomiting, unspecified; I10 Essential (primary) hypertension; Z79.82 Long term (current) use of aspirin; Z79.899 Other long term (current) drug therapy
CPT/HCPCS: 36415; 70450; 71045; 80053; 81001; 82947; 83036; 83690; 83735; 83880; 85025; 86140; 93005; 96365; 96375; 96376; 99284; A9270; J0360; J1170; J1200; J1885; J2060; J2405; J2550; J2765; J3490; J7120; 93010